=== PATIENT | female | born 1940 | race Caucasian/White ===

== ENCOUNTER → 2024-09-05 | Day surgery (SDC) | payer OTHER, BC ==
--- NOTE | 2024-09-05 11:22 | RAD REPORT ---
EXAMINATION: ULTRASOUND GUIDED LEFT AXILLARY CORE NEEDLE BIOPSY LEFT axillary core needle biopsy; percutaneous, using ultrasound guidance. CLINICAL INDICATION:. R92.8 INFORMED CONSENT: The risks, benefits, alternatives, and potential complications of ultrasound guided LEFT axillary biopsy were discussed with the patient. An informed consent sheet was signed. The risks include but are not limited to the following: bleeding, infection, vascular injury, organ injur y, pneumothorax, allergic reaction, and the need for emergent surgery/procedures. BIOPSY TARGET: Large axillary lymphadenopathy, Lateral approach. NEEDLE: 20-gauge core biopsy needles, standard length, 4 cores. SEDATION: None. COMPLICATIONS: None. TECHNIQUE: Appropriate audible time out was performed. The skin was prepped and draped in the normal fashion. The soft tissues were anesthetized with lidocaine. Utilizing real-time ultrasound guidance, a 20-gauge core biopsy needle was placed into the left axillary lesion described above with removal of tissue for pathology evaluation. Compression was held. Hemostasis was achieved. Sterile dressing was applied. Patient tolerated the procedure well without immediate complication. The techno logist was in the room with the radiologist throughout the procedure. IMPRESSION: 1.Successful ultrasound guided core biopsy of the LEFT axillary mass as described above.
== END ==
LOC: DS 09:29
PROVIDERS: ATTEND Family Medicine
DX: C85.14 Unspecified B-cell lymphoma, lymph nodes of axilla and upper limb (principal); R59.0 Localized enlarged lymph nodes
CPT/HCPCS: 19083; 88305